=== PATIENT | male | born 1940 | race Caucasian/White ===

== ENCOUNTER → 2018-09-04 | Emergency (ER) | payer MEDICARE ==
[~2018-09-04] MED LIST: Albuterol/Ipratropium 3.0-0.5 MG/3 ML Neb Soln ONE; Aspirin 81 MG Tab.Chew PO ONE; EPINEPHrine 1:10,000 1 MG/10 ML Syringe ONE; Furosemide 40 MG/4 ML VIAL ONE; Heparin Sodium 5,000 Units/ML Vial IVPUSH ONE; Heparin Sodium/D5W 25,000 UNITS/500 ML BAG IV SCH; Morphine 2 MG/ML Syringe ONE
--- NOTE | 2018-09-04 08:57 | CR ---
DATE OF SERVICE: 09/04/2018 CLINICAL DATA: Weakness - recent weight loss. AP PORTABLE CHEST: No priors. The heart size is normal. There is calcification of the aortic arch. The lungs are clear. No pneumothorax. No pleural effusions. The patient is status post left shoulder arthroplasty. No evidence of acute intrathoracic disease. [id number] [facility]
--- NOTE | 2018-09-04 09:05 | EDM.PDOC ---
ED HPI GENERAL MEDICAL PROBLEM - General Chief Complaint: General Stated Complaint: FALL Time Seen by Provider: 09/04/18 07:00 Source of Information: Reports: Patient, Old Records, Provider, RN, Significant Other - History of Present Illness INITIAL COMMENTS - FREE TEXT/NARRATIVE: This is a 77yo M who recently had a syncopal episode. 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 He was evaluated by [facility] and then signed out at 7am. Patient appears alert and oriented but stated it was July vs August. He knew where he was and the year. He denies any syncopal episode but does feel weak which he states has been ongoing for years and is his normal. He denies any recent changes to his health and denies any heart issues or chest pain. He denies any shortness of breath. Patient denies any issues at this time. Onset: Sudden Duration: Minutes:, Resolved Prior to Arrival Location: Reports: Generalized Severity: Mild Improves with: Reports: None Worsens with: Reports: None - Related Data Allergies Allergy/AdvReac Type Severity Reaction Status Date / Time Penicillins Allergy Vomiting Verified 09/04/18 07:28 Home Meds: Home Meds Allopurinol [Zyloprim] 300 mg PO DAILY 09/04/18 [History] Brimonidine Tartrate [Alphagan P 0.1% Ophth Soln] 2 drop EYEBOTH BID 09/04/18 [ History] HCTZ/Triamterene [Maxzide 25-37.5 MG] 25 - 37.5 mg PO DAILY 09/04/18 [History] Ibuprofen 400 mg PO DAILY 09/04/18 [History] Ibuprofen 600 mg PO DAILY 09/04/18 [History] Omeprazole 20 mg PO DAILY 09/04/18 [History] Primidone 1,000 mg PO DAILY 09/04/18 [History] Propranolol [Inderal] 80 mg PO DAILY 09/04/18 [History] Simvastatin [Zocor] 40 mg PO DAILY 09/04/18 [History] Tamsulosin HCl [Flomax] 0.4 mg PO DAILY 09/04/18 [History] metFORMIN HCl [Metformin HCl] 500 mg PO BID 09/04/18 [History] Past Medical History Cardiovascular History: Reports: Heart Murmur, Hypertension Psychiatric History: Reports: Other (See Below) Other Psychiatric History: significant other states some confused last 2 months Endocrine/Metabolic History: Reports: Diabetes, Type II Oncologic (Cancer) History: Reports: Other (See Below) Other Oncologic History: skin cancer x 2 at least per significant other ED ROS GENERAL - Review of Systems Review Of Systems: ROS reveals no pertinent complaints other than HPI. ED EXAM, GENERAL - Physical Exam Exam: See Below Exam Limited By: No Limitations General Appearance: Alert, WD/WN, No Apparent Distress Eye Exam: Bilateral Eye: EOMI, PERRL Ears: Normal External Exam Nose: Normal Inspection Throat/Mouth: Normal Inspection Head: Atraumatic, Normocephalic Neck: Normal Inspection Respiratory/Chest: No Respiratory Distress, Lungs Clear, Normal Breath Sounds Cardiovascular: Normal Peripheral Pulses, Regular Rate, Rhythm, No Edema Course - Vital Signs Last Recorded V/S: Last Vital Signs Temp 36.1 C 09/04/18 06:50 Pulse 79 09/04/18 06:50 Resp BP 127/81 09/04/18 06:50 Pulse Ox - Orders/Labs/Meds Orders: Active Orders 24 hr Category Date Time Status EKG Documentation Completion [RC] ASDIRECTED Care 09/04/18 07:26 Active Heparin Sodium/D5W [Heparin 25,000 Units in D5W 500 ML] Med 09/04/18 10:00 Ordered 25,000 units in 500 ml IV TITRATE EKG 12 Lead [EK] Routine Ther 09/04/18 07:26 Active Medication Orders Heparin Sodium/Dextrose (Heparin 25,000 Units In D5w 500 Ml) 25,000 units in 500 mls @ 0 mls/hr IV TITRATE CADE Labs: Laboratory Tests 09/04/18 09/04/18 09/04/18 Range/Units 06:51 06:51 06:51 WBC 7.8 (4.0-11.0) K/uL RBC 4.48 L (4.50-6.50) M/uL Hgb 15.1 (13.0-18.0) g/dL Hct 44.8 (40.0-54.0) % MCV 100 H (76-96) fL MCH 33.7 H (27.0-32.0) pg MCHC 33.7 (31.0-35.0) g/dL RDW 13.8 (11.0-16.0) % Plt Count 140 L (150-400) K/uL MPV 11.6 H (6.0-10.0) fL Neut % (Auto) 72.3 H (45.0-70.0) % Lymph % (Auto) 15.2 L (20.0-40.0) % [place] % (Auto) 9.8 (3.0-10.0) % Eos % (Auto) 2.2 (1.0-5.0) % Baso % (Auto) 0.5 (0.0-0.5) % Neut # (Auto) 5.62 (2.00-7.50) K/uL Lymph # (Auto) 1.18 L (1.50-4.00) K/uL [place] # (Auto) 0.76 (0.20-0.80) K/uL Eos # (Auto) 0.17 (0.04-0.40) K/uL Baso # (Auto) 0.04 (0.02-0.10) K/uL Sodium 141 (136-145) mmol/L Potassium 3.7 (3.5-5.1) mmol/L Chloride 102 (98-107) mmol/L Carbon Dioxide 27.2 (21.0-32.0) mmol/L Anion Gap 15.5 H (5.0-15.0) mmol/L BUN 20 (8-26) mg/dL Creatinine 1.29 (0.70-1.30) mg/dL Est Cr Clr Drug Dosing TNP Estimated GFR (MDRD) 54 L (>60) MLS/MIN BUN/Creatinine Ratio 15.5 (6-25) Glucose 190 H (74-100) mg/dL Calcium 8.3 L (8.5-10.1) mg/dL Total Bilirubin 0.3 (0.0-1.0) mg/dL AST 51 H (15-37) U/L ALT 110 H (12-78) U/L Alkaline Phosphatase 87 (46-116) U/L Troponin I 0.106 H* (0.000-0.060) ng/mL B-Natriuretic Peptide 950 H (0-450) pg/mL Total Protein 7.4 (6.4-8.2) g/dL Albumin 3.5 (3.4-5.0) g/dL Globulin 3.9 (2.2-4.2) g/dL Albumin/Globulin Ratio 0.9 (0.8-2.0) Meds: Medications Generic Name Dose Route Start Last Admin Trade Name Rocky PRN Reason Stop Dose Admin Heparin Sodium/Dextrose 25,000 units in 500 mls @ 0 mls/hr 09/04/18 10:00 Heparin 25,000 Units In D5w 500 Ml IV TITRATE CADE 12 UNITS/KG/HR Discontinued Medications Generic Name Dose Route Start Last Admin Trade Name Rocky PRN Reason Stop Dose Admin Aspirin 324 mg 09/04/18 09:50 09/04/18 07:50 Aspirin PO 09/04/18 09:51 324 mg ONETIME ONE Administration Heparin Sodium (Porcine) 4,000 units 09/04/18 09:48 09/04/18 08:30 Heparin Sodium IVPUSH 09/04/18 09:49 4,000 units .BOLUS ONE Administration Departure - Departure Time of Disposition: 11:00 Disposition: DC/Tfer to Acute Hospital 02 Condition: Fair Clinical Impression: Elevated troponin, Elevated liver enzymes, Elevated brain natriuretic peptide ( BNP) level - Discharge Information Referrals: PCP,None [Primary Care Provider] - Forms: ED Department Discharge - Problem List & Annotations (1) Elevated brain natriuretic peptide (BNP) level SNOMED Code(s): 365892621, 489801167 Code(s): R79.89 - OTHER SPECIFIED ABNORMAL FINDINGS OF BLOOD CHEMISTRY Status: Acute Priority: High Current Visit: Yes (2) Elevated liver enzymes SNOMED Code(s): 877117923 Code(s): R74.8 - ABNORMAL LEVELS OF OTHER SERUM ENZYMES Status: Acute Priority: High Current Visit: Yes (3) Elevated troponin SNOMED Code(s): 967564940, 284959002, 182529303 Code(s): R74.8 - ABNORMAL LEVELS OF OTHER SERUM ENZYMES Status: Acute Priority: High Current Visit: Yes - Problem List Review Problem List Initiated/Reviewed/Updated: Yes - My Orders Last 24 Hours: My Active Orders 09/04/18 07:26 EKG Documentation Completion [RC] ASDIRECTED EKG 12 Lead [EK] Routine 09/04/18 10:00 Heparin Sodium/D5W [Heparin 25,000 Units in D5W 500 ML] 25,000 units in 500 ml IV TITRATE - Assessment/Plan Last 24 Hours: My Active Orders 09/04/18 07:26 EKG Documentation Completion [RC] ASDIRECTED EKG 12 Lead [EK] Routine 09/04/18 10:00 Heparin Sodium/D5W [Heparin 25,000 Units in D5W 500 ML] 25,000 units in 500 ml IV TITRATE Plan: Discussed plan of care with Héctor Lowry. Patient to be transferred for further management due to elevated toponins. Dr. Serrano accepting to 2nd floor and telemetry. Patient counseled on plan of care and agrees with plan. Patient really wants to go back to [facility] but counseled patient on the need for close monitoring and management due to elevated troponins. Discussed labs and concerns with Daughter over the phone. Patient transferred in stable condition.
== END ==
LOC: LB.ED 06:27
DX: R74.8 Abnormal levels of other serum enzymes (principal); R79.89 Other specified abnormal findings of blood chemistry; I10 Essential (primary) hypertension; E11.9 Type 2 diabetes mellitus without complications; Z88.0 Allergy status to penicillin
CPT/HCPCS: 36415; 71045; 80053; 83880; 84484; 85025; 96374; 99285; A0425; A0429; A9270; J1644; J7030